=== PATIENT | male | born 1995 | race Caucasian/White ===

== ENCOUNTER 2018-06-08 13:02 | Emergency (ER) | payer BC ==
[2018-06-08 13:16] VITALS: BP 134/69
[2018-06-08] MEDS ORDERED: Tetracaine 0.5% OPTH.SOL 4 ML* 1 DROP BTL LEFT EYE ONE (13:17)
--- NOTE | 2018-06-08 13:17 | UC ---
Eye Complaint HPI - HPI Summary HPI Summary: 22 yo male presents with ?FB in left eye. He tells me that he was grinding metal yesterday without eye protection and thinks a metal shard got into his eye. Has been having pain and FB sensation everytime he blinks. Does not wear glasses or contacts. He tried flushing the eye at home with no relief. - History of Current Complaint Chief Complaint: UCEye Stated Complaint: FB IN EYE Time Seen by Provider: 06/08/18 13:17 Hx Obtained From: Patient Onset/Duration: Sudden Onset Severity Initially: Moderate Severity Currently: Moderate Pain Intensity: 6 Pain Scale Used: 0-10 Numeric - Allergies/Home Medications Allergies/Adverse Reactions: Allergies Allergy/AdvReac Type Severity Reaction Status Date / Time ANISE SEED/LICORICE Allergy VOMITS Uncoded 06/08/18 13:16 ENVIRONMENT/SEASONAL HAYFEVER Allergy SNEEZE,MILES Uncoded 06/08/18 13:16 ESTIONS PMH/Surg Hx/FS Hx/Imm Hx - Additional Past Medical History Additional PMH: None Previously Healthy: Yes - Surgical History Surgical History: Yes Surgery Procedure, Year, and Place: ankle, ORAL SURGERY - Family History Known Family History: Positive: None - Social History Occupation: Employed Full-time Lives: With Family Alcohol Use: Occasionally Alcohol Amount: "semi-weekly" Substance Use Type: None Smoking Status (MU): Never Smoked Tobacco Review of Systems Constitutional: Negative Skin: Negative Eyes: Eye Redness, Other - FB sensation Respiratory: Negative Cardiovascular: Negative Neurovascular: Negative Neurological: Negative Psychological: Negative All Other Systems Reviewed And Are Negative: Yes Physical Exam - Summary Physical Exam Summary: GENERAL: NAD. Holding left eye closed. SKIN: No rashes, sores, lesions, or open wounds. HEENT: Head: AT/NC Eyes: PERRLA. RIGHT EYE: EOM intact. Conjunctiva clear without inflammation or discharge. LEFT EYE: EOM intact. Conjunctiva clear with mild inflammation. Two specks of metal observed under upper eyelid. CHEST: No accessory muscle use. Breathing comfortably and in no distress. CV: Pulses intact. Brisk cap refill. NEURO: Alert. CN II-XII grossly intact. PSYCH: Age appropriate behavior. Triage Information Reviewed: Yes Vital Signs: Initial Vital Signs Temp 97.7 F 06/08/18 13:14 Pulse 68 06/08/18 13:14 Resp 12 06/08/18 13:14 BP 134/69 06/08/18 13:14 Pulse Ox 98 06/08/18 13:14 Eye Complaint Course/Dx - Course Course Of Treatment: Metal specks under left upper eyelid easily removed with cotton swab. Fluorescein exam revealed mild abrasion medial to the pupil. No quita sign. Rx for polytrim. - Differential Dx/Diagnosis Provider Diagnoses: FB in left eye. Corneal abrasion left Discharge - Sign-Out/Discharge Documenting (check all that apply): Discharge/Admit/Transfer - Discharge Plan Condition: Stable Disposition: HOME Prescriptions: Polymyx/Trimethoprim OPTH* [Polytrim OPHTH*] 1 drop LEFT EYE TID #1 btl Patient Education Materials: Eye Foreign Body (ED) Referrals: Barry Green MD [Primary Care Provider] - Additional Instructions: If you develop a fever, shortness of breath, chest pain, new or worsening symptoms - please call your PCP or go to the ED. - Billing Disposition and Condition Condition: STABLE Disposition: Home
[2018-06-08] MEDS ORDERED: Fluorescein Sod TOPICAL 0.6* 0.6 MG TEST OPHTHALMIC ONE (13:18)
== END 2018-06-08 13:37 | disposition home or self-care (01) ==
LOC: UCEAST 13:02
DX: T15.12XA Foreign body in conjunctival sac, left eye, initial encounter (principal); Z91.09 Other allergy status, other than to drugs and biological substances; S05.02XA Injury of conjunctiva and corneal abrasion without foreign body, left eye, initial encounter; Z18.10 Retained metal fragments, unspecified; X58.XXXA Exposure to other specified factors, initial encounter; Y93.89 Activity, other specified; Y92.9 Unspecified place or not applicable
CPT/HCPCS: 99212; A9270-GY; G0463

== ENCOUNTER 2019-04-16 17:05 | Emergency (ER) | payer BC ==
[2019-04-16 17:15] VITALS: BP 140/75
--- NOTE | 2019-04-16 17:25 | UC ---
Skin Complaint HPI - HPI Summary HPI Summary: had a pilonidial cyst I&D last year---symptoms returned yesterday of pain redness and swelling and he wanted to seek treatment right away - History of Current Complaint Chief Complaint: UCSkin Time Seen by Provider: 04/16/19 17:10 Stated Complaint: CYST ON BACK Hx Obtained From: Patient Onset/Duration: Sudden Onset, Lasting Days - 1, Still Present Timing: Constant Onset Severity: Mild Current Severity: Mild Pain Intensity: 0 Location: Discrete Character: Redness, Raised Aggravating Factor(s): Touch Alleviating Factor(s): Nothing Associated Signs & Symptoms: Positive: Tenderness. Negative: Drainage - Allergy/Home Medications Allergies/Adverse Reactions: Allergies Allergy/AdvReac Type Severity Reaction Status Date / Time ANISE SEED/LICORICE Allergy VOMITS Uncoded 04/16/19 17:15 ENVIRONMENT/SEASONAL HAYFEVER Allergy SNEEZE,MILES Uncoded 04/16/19 17:15 ESTIONS PMH/Surg Hx/FS Hx/Imm Hx Previously Healthy: Yes - Surgical History Surgical History: Yes Surgery Procedure, Year, and Place: ankle, ORAL SURGERY - Family History Known Family History: Positive: None - Social History Occupation: Employed Full-time Lives: With Family Alcohol Use: Weekly Alcohol Amount: 7 drinks per week Substance Use Type: None Smoking Status (MU): Never Smoked Tobacco Review of Systems All Other Systems Reviewed And Are Negative: Yes Constitutional: Positive: Negative Skin: Positive: Other - pilnidial cyst--- Eyes: Positive: Negative ENT: Positive: Negative Respiratory: Positive: Negative Cardiovascular: Positive: Negative Gastrointestinal: Positive: Negative Genitourinary: Positive: Negative Motor: Positive: Negative Neurovascular: Positive: Negative Musculoskeletal: Positive: Negative Neurological: Positive: Negative Psychological: Positive: Negative Is Patient Immunocompromised?: No Physical Exam Triage Information Reviewed: Yes Appearance: Well-Appearing, No Pain Distress, Well-Nourished Vital Signs: Initial Vital Signs Temp 97.8 F 04/16/19 17:10 Pulse 103 04/16/19 17:10 Resp 16 04/16/19 17:10 BP 140/75 04/16/19 17:10 Pulse Ox 97 04/16/19 17:10 Vital Signs Reviewed: Yes Eye Exam: Normal Eyes: Positive: Conjunctiva Clear ENT Exam: Normal ENT: Positive: Normal ENT inspection, Hearing grossly normal. Negative: Trismus , Muffled voice, Hoarse voice Dental Exam: Normal Neck exam: Normal Neck: Positive: Supple, Nontender Respiratory Exam: Normal Respiratory: Positive: Chest non-tender, No respiratory distress, No accessory muscle use Cardiovascular Exam: Normal Cardiovascular: Positive: RRR, Pulses Normal, Brisk Capillary Refill Musculoskeletal Exam: Normal Musculoskeletal: Positive: Strength Intact, ROM Intact, No Edema Neurological Exam: Normal Neurological: Positive: Alert, Muscle Tone Normal Psychological Exam: Normal Skin: Positive: Other - pilonidal cyst---firm, no area of fluctulance--warm to touch and tender Course/Dx - Course Course Of Treatment: warm soaks/compress, keflex, tylenol/ibuprofen for pain follow with surgeon this week for definitive treatment - Diagnoses Provider Diagnosis: Pilonidal cyst Discharge - Sign-Out/Discharge Documenting (check all that apply): Patient Departure All imaging exams completed and their final reports reviewed: No Studies - Discharge Plan Condition: Stable Disposition: HOME Prescriptions: Cephalexin CAP* [Keflex CAP*] 500 mg PO QID 7 Days #28 cap Patient Education Materials: Pilonidal Cyst (ED), Heat Pack Application (ED) Referrals: Germaine Yates MD [Medical Doctor] - 4 Days - Billing Disposition and Condition Condition: STABLE Disposition: Home - Attestation Statements Provider Attestation: Per institutional requirements, I have reviewed the chart, however, I was not consulted specifically or made aware of this patient by the midlevel provider. I did not personally evaluate, interact with , or disposition this patient.
== END 2019-04-16 17:35 | disposition home or self-care (01) ==
LOC: UCEAST 17:05
DX: L05.91 Pilonidal cyst without abscess (principal)
CPT/HCPCS: 99212; G0463